=== PATIENT | female | born 1955 | race Hispanic/Latino ===

== ENCOUNTER 2017-11-04 06:12 | Day surgery (SDC) | payer BC ==
[2017-10-29 13:45] VITALS: BMI 21.1
--- NOTE | 2017-11-03 23:04 | HP ---
REASON FOR ADMISSION: Left heart cath, possible angioplasty, because of abnormal stress test. BRIEF CLINICAL HISTORY: This is a 61-year-old female with past medical history significant for coronary artery disease status post stent by Dr. Davila in the past who is complaining of chest pain, discomfort, and dyspnea on exertion. Was seen by Dr. Funez on 10/19/2017 because of multiple risk factors of coronary artery disease including history of stent in the past. The patient underwent a stress test that is abnormal. The patient is scheduled for elective cardiac cath, possible angioplasty. PAST MEDICAL HISTORY: Significant for coronary artery disease, status post stent a few years ago, and history of hypertension more than 10 years ago. SOCIAL HISTORY: He smokes half a pack a day. Before, he used to smoke a pack a day. Drinks socially. ALLERGIES: NO KNOWN DRUG ALLERGIES. CURRENT MEDICATIONS: The patient is taking tramadol 50 mg daily, valsartan 160 mg daily, nortriptyline 10 mg daily, labetalol 100 mg p.o. b.i.d., Nexium 40 mg daily, aspirin 81 mg daily, and Xanax 1 mg daily. CARDIAC WORKUP: As follows: The patient underwent a stress test dated 10/25/2017 that showed probably normal myocardial perfusion study, partially reversible anteroseptal defect suspicious for residual ischemia, and ejection fraction reported 70%. In comparison to last study on 04/22/2015, the defect appears new. EKG showed normal sinus artifact pattern in V1 suggestive of incomplete right bundle-branch block and 1 to 2 mm horizontal slopping noted in V4, V5 and V6 suggestive of ischemia versus LVH with a strange pattern. PHYSICAL EXAMINATION: VITAL SIGNS: Height of the patient is 5 feet 1 inch. Weight of the patient is 112 pounds. Body mass index is 21.2 kg/m2. Heart rate 60 and blood pressure 120/80. HEENT: PERRLA intact. NECK: Supple. No carotid bruit or thyromegaly. CHEST: Clear to auscultation. HEART: S1 and S2 regular. ABDOMEN: Soft. EXTREMITIES: Clubbing and cyanosis negative. LABORATORY DATA: Blood workup pending. IMPRESSION: Abnormal EKG ST-T wave changes suggestive of ischemia, abnormal stress test suggestive of reversible anteroseptal defect suggestive of ischemia, ejection fraction 70%, possible myocardial infarction, history of stent in the past. RECOMMENDATION: We will do cardiac cath and load with 300 mg of Plavix and aspirin. Further recommendation after the cardiac cath. We will follow with you. Thank you Dr. Darryn Cedeno/ for providing us the opportunity in taking care of the patient, Carmina Palacios. Ata Singh MD
[2017-11-04] MEDS ORDERED: Phenylephrine 10 mg/ml Inj ONE (06:59)
[2017-11-04] MEDS ORDERED: Iodixanol 320 MG/ML 200 ML BOTTLE IV ONE (07:01)
[2017-11-04] MEDS ORDERED: Iohexol 350mgl/ml 50 ML ONE (07:01)
[2017-11-04] MEDS ORDERED: Iodixanol 320 MG/ML 100 ML BOTTLE IV ONE (07:01)
[2017-11-04] MEDS ORDERED: HEPARIN SODIUM/NS 1,000 ML IV ONE (07:01)
[2017-11-04] MEDS ORDERED: Nitroglycerin 50mg in D5W 50 MG/250 ML BOTTLE IV ONE (07:02)
[2017-11-04] MEDS ORDERED: Lidocaine 2% Inj (20ml) ONE (07:02)
[2017-11-04 07:34] LABS: BASO # 0.04 K/mm3 (0.0-2.0); BASO % 0.7 % (0.0-3.0); EOS # 0.1 (0.0-0.7); EOS % 2.1 % (1.5-5.0); GRAN # 3.54 (1.4-6.5); HEMATOCRIT 32.5 % (36.0-48.0); LYMPH # 1.8 (1.2-3.4); LYMPH % 30.3 % (22.0-35.0); MEAN CELL VOLUME 86.7 fl (80.0-105.0); MEAN CORPUSCULAR HEMOGLOBIN 29.1 pg (25.0-35.0); MEAN CORPUSCULAR HGB CONC 33.5 g/dl (31.0-37.0); MEAN PLATELET VOLUME 10.5 fl (7.0-11.0); MONO # 0.3 (0.1-0.6); MONO % 5.9 % (1.0-6.0); WHITE BLOOD COUNT 5.8 10^3/ul (4.5-11.0)
[2017-11-04 07:43] LABS: CALCIUM 9.6 mg/dL (8.4-10.5); POTASSIUM 4.4 mmol/L (3.6-5.0)
[2017-11-04] MEDS: Midazolam 2 MG/2 ML VIAL ONE ×2 (07:44→09:26)
[2017-11-04 07:47] LABS: INR 0.96 (0.93-1.08); PARTIAL THROMBOPLASTIN TIME 29.7 Seconds (25.1-36.5)
[2017-11-04] MEDS ORDERED: Sodium Bicarbonate (8.4%) 50 Meq Syringe ONE (07:53)
[2017-11-04] MEDS ORDERED: Sodium Bicarbonate 8.4% 130 MEQ in Sodium Chloride 0.45% 1,000 ML IV SCH (08:00)
[2017-11-04] MEDS: Morphine 2 mg/ml ISec ONE ×2 (08:32→09:24)
[2017-11-04] MEDS ORDERED: Oxycodone/Acetaminophen 5/325 mg Tab PO PRN (09:14)
[2017-11-04] MEDS ORDERED: Morphine 2 mg/ml ISec IVP PRN (09:32)
[2017-11-04 13:53] LABS: BASO # 0.03 K/mm3 (0.0-2.0); BASO % 0.5 % (0.0-3.0); EOS # 0.1 (0.0-0.7); EOS % 0.9 % (1.5-5.0); GRAN # 4.32 (1.4-6.5); GRAN % 78.6 % (50.0-68.0); HEMATOCRIT 31.3 % (36.0-48.0); LYMPH # 0.8 (1.2-3.4); LYMPH % 14.5 % (22.0-35.0); MEAN CORPUSCULAR HEMOGLOBIN 29.1 pg (25.0-35.0); MEAN CORPUSCULAR HGB CONC 33.9 g/dl (31.0-37.0); MEAN PLATELET VOLUME 10.1 fl (7.0-11.0); MONO # 0.3 (0.1-0.6); MONO % 5.5 % (1.0-6.0); WHITE BLOOD COUNT 5.5 10^3/ul (4.5-11.0)
[2017-11-04 14:22] LABS: CALCIUM 8.6 mg/dL (8.4-10.5); MAGNESIUM 1.9 mg/dL (1.7-2.2); PHOSPHOROUS 3.8 mg/dL (2.5-4.5)
[2017-11-04 14:53] LABS: POTASSIUM 3.9 mmol/L (3.6-5.0)
[2017-11-04] MEDS ORDERED: Sodium Chloride 0.9% 1,000 ML IV SCH (15:00)
--- NOTE | 2017-11-04 17:48 | CARD ---
APPROVED REPORT Procedure(s) performed: Left Heart Catheterization Asceding Aortogram Non Selective Renal ( distal Abd aortogram) HISTORY The patient is a 61 year-old female with a history of : previous ID (> 7 days), most recent EF: 70%. (EF Method: RADIONUCLIDE), previous diagnostic cath, tobacco history() : The patient is a current smoker , previous PCI (The PCI date was 08/04/2015), hypertension , dyslipidemia , Pre-op abnormal stress test, Clayton-septal reversible Ischemia., CKD base line Creatinine 2.1 and uncontrolled HTN.. INDICATION The indication(s) include : positive stress test. CASE TECHNIQUE The patient was brought electively to the Cardiac Catheterization Laboratory in a fasting state and was prepped and draped in a sterile manner. The right femoral groin was infiltrated with 2% Lidocaine subcutaneous anesthesia. A 6 Fr x 11 cm Cierra sheath was inserted into the right femoral artery without difficulty. Coronary angiography was performed using coronary diagnostic catheters. The left coronary system was accessed and visualized with a Diagnostic ,6 Fr JR 4 catheter. The right coronary system was accessed and visualized with a Diagnostic ,6 Fr JR 3.5 catheter. The left ventricle was accessed and visualized with a 6 Fr Pigtail catheter. Left ventricular/Aortic Valve gradient assessed on pullback. Left ventriculogram was performed in JARVIS projection. Closure device was deployed with a 6 Fr / 7 Fr MynxGrip without any complications. The patient tolerated the procedure well and there were no complications associated with the procedure. Vessel Analysis The patient's coronary anatomy is right dominant. The left main coronary artery is a medium size vessel with diffuse calcification noted throughout this vessel and without significant stenosis. The left main bifurcates to the left anterior descending and circumflex. The left anterior descending artery is a medium size vessel with diffuse calcification noted throughout this vessel and without significant stenosis. patent stent noted in Mid LAD The first diagonal branch is a medium size vessel with diffuse calcification noted throughout this vessel and without significant stenosis. The second diagonal branch is a small size vessel with diffuse calcification noted throughout this vessel and without significant stenosis. The circumflex artery is a medium size vessel with diffuse calcification noted throughout this vessel and without significant stenosis. There is a 60-70% stenosis in the proximal segment. very torous Vessel with Hair pin turn Distal to stenosis. The first obtuse marginal branch is a medium size vessel with diffuse calcification noted throughout this vessel and without significant stenosis. The second obtuse marginal branch is a medium size vessel with diffuse calcification noted throughout this vessel and without significant stenosis. The right coronary artery is a large size vessel with diffuse calcification noted throughout this vessel and without significant stenosis. The right posterior descending artery is a medium size vessel with diffuse calcification noted throughout this vessel and without significant stenosis. The right posterolateral branch is a medium size vessel with diffuse calcification noted throughout this vessel and without significant stenosis. Left Ventricle The left ventricle is Normal in size with Hyperdynamic contractility. There was no cardiomyopathy. The left ventricular ejection fraction is estimated to be 65-70%. The left ventricular end diastolic pressure is 20 mmHg. Asceding aorotgram done ........No descetion noted Renal Angiogram A JR3.5 catheter was placed in the descending abdominal aorta above the origin of the renal arteries. Angiogram was performed. Left renal artery has 60-70% stenosis in Mid segment Conclusion Non Obstructive CAD, Patent stent in Mid LAD. Moderate Diz. in proximal Cx with 60-70% stenosis and Hair pin turn distal to stenisis not very much suitable for PCI. Preserved LV FX; Ef-65-70%, EDP20 mmof hg. post Cath pt developed Bp- 260/140,so non selective b/l Renal angiogram done... 60-70% left renal aretry stenosis Post procedure lt developed chest pain with radiation to back , so Asc Aortogram done..... No aortic Dissection noted Toal 25 cc diluted Contrast (visipaque ) used. Recommendations Aggressive Medical TherapyCardiac Risk Reduction Program Monitor renal Fx, hydaration with Bicarb fluid Repeat SMA-7 ,6 hrs post Cath (creatinine 1.8, Base line 2.1). F/U Sma-7 in one week Pt. is cleared to go for surgery for back pain. If Bp remains uncontrolled ,may consider Renal artery Duplex study or Renal artery MRA. Cc; drs. Miguel Angel Sweeney / [place].
[2017-11-04] MEDS ORDERED: Sodium Chloride 0.45% 1,000 ML IV SCH (23:15)
[2017-11-04 23:42] VITALS: RESP 18
[2017-11-05 05:59] VITALS: PULSE 74; TEMP 98.9; O2SAT 96
[2017-11-05 06:34] LABS: BASO # 0.03 K/mm3 (0.0-2.0); BASO % 0.5 % (0.0-3.0); EOS # 0.1 (0.0-0.7); GRAN # 4.4 (1.4-6.5); GRAN % 73.1 % (50.0-68.0); HEMATOCRIT 29.9 % (36.0-48.0); LYMPH # 1.2 (1.2-3.4); LYMPH % 19.1 % (22.0-35.0); MEAN CELL VOLUME 86.9 fl (80.0-105.0); MEAN CORPUSCULAR HEMOGLOBIN 28.2 pg (25.0-35.0); MEAN CORPUSCULAR HGB CONC 32.4 g/dl (31.0-37.0); MEAN PLATELET VOLUME 10.6 fl (7.0-11.0); MONO # 0.4 (0.1-0.6); MONO % 6.3 % (1.0-6.0); RED CELL DISTRIBUTION WIDTH 14.7 % (11.5-14.5)
[2017-11-05 06:59] LABS: BILIRUBIN,TOTAL 0.5 mg/dL (0.2-1.3); CALCIUM 8.6 mg/dL (8.4-10.5); MAGNESIUM 1.8 mg/dL (1.7-2.2); PHOSPHOROUS 3.6 mg/dL (2.5-4.5); TOTAL PROTEIN 7.4 g/dL (5.8-8.3)
[2017-11-05 09:29] VITALS: BP 124/68
[2017-11-05] MEDS ORDERED: Non Formulary Medication (Valsartan [Diovan] 160 MG) PO SCH (10:00)
--- NOTE | 2017-11-06 03:40 | DS ---
REASON FOR ADMISSION: Left heart cath, possible angioplasty, because of abnormal stress test, preop for back surgery/stimulatory implantation. HISTORY OF PRESENT ILLNESS: The patient denies any chest pain, shortness of breath, or any palpitation. PHYSICAL EXAMINATION: VITAL SIGNS: As follows, temperature afebrile, heart rate 74, blood pressure 113/62. HEENT: PERRLA. Extraocular muscles intact. NECK: Supple. No carotid bruit or thyromegaly. CHEST: Clear to auscultation. HEART: S1 and S2 regular. ABDOMEN: Soft. EXTREMITIES: Clubbing and cyanosis negative. LABORATORY DATA: Blood workup as follows: WBC 6, hemoglobin 9.9, hematocrit 29.9 and platelet count 162. Chemistries shows sodium 130, potassium 4, chloride 107, carbon dioxide 27, anion gap of 9, BUN 20, creatinine 1.9. IMPRESSION: Coronary artery disease, status post cardiac catheterization because of abnormal stress test that shows ejection fraction preserved, circumflexes disease, patent stent in left anterior descending, preserved left ventricular function. The patient is baseline creatinine elevated 2.1. The patient was given by IV fluid. Postprocedure, his creatinine came to 1.8, but the patient remained hypertensive, kept overnight under observation. Now the blood pressure well controlled now. The patient denies any chest pain, shortness of breath, or any palpitation. Blood pressure now the 113/62. PLAN: To discharge home followed with Dr. Funez. Follow up with Dr. Darryn Cedeno, also I mentioned to doctor again, if the patient needs follow up one week to monitor the renal function. Also, if the blood pressure remains elevated, consider arterial duplex study of renal artery as well as MRI can be considered, but the patient is cleared from Cardiology point of view to go for implantation of nerve stimulator or back surgery. Total 20 mL of contrast was used. The diluted contrast received back and postprocedure kidney function remained stable. MEDICATIONS AT THE DISCHARGE: Include previous pain medication labetalol 100 mg three times a day, losartan 100 mg daily, aspirin 81 mg daily. Thank you Dr. Funez for providing us the opportunity in taking care of the patient, Carmina Palacios. We will follow with you. Ata Singh MD [facility] # [id number]
== END 2017-11-05 10:26 | disposition home or self-care (01) ==
LOC: CATH 06:12 → 2RSO 09:08 → CATH 11-05 10:26
PROVIDERS: ATTEND Internal Medicine Cardiovascular Disease
DX: I25.10 Atherosclerotic heart disease of native coronary artery without angina pectoris (principal); I70.1 Atherosclerosis of renal artery; I12.9 Hypertensive chronic kidney disease with stage 1 through stage 4 chronic kidney disease, or unspecified chronic kidney disease; N18.9 Chronic kidney disease, unspecified; F17.210 Nicotine dependence, cigarettes, uncomplicated; E78.5 Hyperlipidemia, unspecified; Z95.5 Presence of coronary angioplasty implant and graft
CPT/HCPCS: 36415; 80048; 80061; 83735; 84100; 85025; 85610; 85730; 86850; 86900; 93458; 99152; 99153; C1760; C1769; C2629; J0360; J1644 ×2; J2250; J2270; J2405; J3010; J7030 ×2; J7040 ×2

== ENCOUNTER 2018-02-03 11:51 | Inpatient (IN) | payer BC ==
[2018-02-03] MEDS ORDERED: Metoprolol 1 mg/ml Inj IVP STA ×3 (12:13→12:33)
--- NOTE | 2018-02-03 12:18 | ED PDOC ---
Arrival/HPI - General Chief Complaint: High Blood Pressure Time Seen by Provider: 02/03/18 12:12 Historian: Patient - History of Present Illness Narrative History of Present Illness (Text): 02/03/18 12:12 A 62 year old female, whose past medical history includes hypertension, CAD with 4 stents, carotid artery stenosis, and chronic back pain, presents to the emergency department complaining of near syncope this morning. Patient reports feeling like she was going to pass out while in the shower so she stepped out and went to lay in bed. Patient notes a mild headache and high blood pressure. Patient denies any fever, chills, nausea, vomiting, abdominal pain, chest pain, shortness of breath, new back pain, or any other complaints. PMD: Dr. Cedeno 02/03/18 14:57 Time/Duration: Other (this morning) Symptom Course: Unchanged Context: Home Past Medical History - Provider Review Nursing Documentation Reviewed: Yes - Infectious Disease Hx of Infectious Diseases: None - Cardiac Hx Cardiac Disorders: Yes Hx Hypertension: Yes - Pulmonary Hx Respiratory Disorders: No - Neurological Hx Neurological Disorder: No - HEENT Hx HEENT Disorder: No - Renal Hx Renal Disorder: No - Endocrine/Metabolic Hx Endocrine Disorders: No - Hematological/Oncological Hx Blood Disorders: Yes Hx Cancer: Yes (SMOLDERING MYELOMA) - Integumentary Hx Dermatological Disorder: No - Musculoskeletal/Rheumatological Hx Musculoskeletal Disorders: Yes Hx Back Pain: Yes - Gastrointestinal Hx Gastrointestinal Disorders: No - Genitourinary/Gynecological Hx Genitourinary Disorders: No - Psychiatric Hx Psychophysiologic Disorder: No Hx Substance Use: No - Surgical History Hx Coronary Stent: Yes - Anesthesia Hx Anesthesia Reactions: No Hx Malignant Hyperthermia: No - Suicidal Assessment Feels Threatened In Home Enviroment: No Family/Social History - Physician Review Nursing Documentation Reviewed: Yes Family/Social History: No Known Family HX Smoking Status: Current Some Days Smoker Hx Alcohol Use: No Hx Substance Use: No Allergies/Home Meds Allergies/Adverse Reactions: Allergies erythromycin base Allergy (Severe, Verified 02/03/18 11:53) RASH Penicillins Allergy (Severe, Verified 02/03/18 11:53) RASH Home Medications: Home Meds Medication Instructions Recorded Confirmed Aspirin [Aspir 81] 81 mg PO DAILY 11/03/13 02/03/18 Alprazolam [Xanax] 1 mg PO TID 04/22/15 02/03/18 Esomeprazole Magnesium [Nexium] 40 mg PO DAILY 10/25/17 02/03/18 Labetalol [Trandate] 100 mg PO BID 10/25/17 02/03/18 Valsartan [Diovan] 160 mg PO DAILY 10/25/17 02/03/18 traMADol [Ultram] 50 mg PO DAILY PRN 10/25/17 02/03/18 Review of Systems - Physician Review All systems were reviewed & negative as marked: Yes - Review of Systems Constitutional: absent: Fevers, Night Sweats Eyes: absent: Vision Changes Respiratory: absent: SOB Cardiovascular: Other (near-syncope). absent: Chest Pain, Palpitations, Edema, Calf Pain, ROCHE, Orthopnea, Syncope Gastrointestinal: absent: Abdominal Pain, Nausea, Vomiting Genitourinary Female: absent: Dysuria, Frequency Musculoskeletal: Back Pain (chronic, no new) Neurological: Headache, Dizziness. absent: Focal Weakness, Gait Changes, Speech Changes, Facial Droop Physical Exam Vital Signs Reviewed: Yes Vital Signs Temp Pulse Resp BP Pulse Ox 02/03/18 15:36 98.3 F 02/03/18 15:34 62 190/90 H 99 02/03/18 14:56 66 16 180/80 H 98 02/03/18 14:47 63 18 190/90 H 99 02/03/18 14:41 66 18 210/110 H 98 02/03/18 14:32 64 210/120 H 02/03/18 14:18 64 18 220/120 H 98 02/03/18 14:00 61 18 200/98 H 99 02/03/18 13:47 64 18 200/98 H 99 02/03/18 13:41 62 220/100 H 02/03/18 13:35 62 18 220/100 H 99 02/03/18 12:59 64 18 220/90 H 100 02/03/18 12:37 220/100 H 02/03/18 12:34 72 18 220/100 H 98 02/03/18 11:55 97.7 F 67 17 232/74 H 100 Temperature: Afebrile Blood Pressure: Hypertensive Pulse: Regular Respiratory Rate: Normal Appearance: Positive for: Well-Appearing, Non-Toxic, Comfortable Pain Distress: None Mental Status: Positive for: Alert and Oriented X 3 - Systems Exam Head: Present: Atraumatic, Normocephalic Pupils: Present: PERRL Extroacular Muscles: Present: EOMI Conjunctiva: Present: Normal Mouth: Present: Moist Mucous Membranes Neck: Present: Normal Range of Motion. No: Meningeal Signs Respiratory/Chest: Present: Clear to Auscultation, Good Air Exchange. No: Respiratory Distress, Accessory Muscle Use Cardiovascular: Present: Regular Rate and Rhythm, Normal S1, S2. No: Murmurs Abdomen: Present: Normal Bowel Sounds. No: Tenderness, Distention, Peritoneal Signs Back: Present: Normal Inspection Upper Extremity: Present: Normal Inspection, Normal ROM, NORMAL PULSES (Equal pulses bilaterally). No: Cyanosis, Edema Lower Extremity: Present: Normal Inspection. No: Edema, CALF TENDERNESS Neurological: Present: GCS=15, CN II-XII Intact, Speech Normal, Motor Func Grossly Intact, Normal Sensory Function, Normal Cerebellar Funct Skin: Present: Warm, Dry, Pale. No: Rashes Psychiatric: Present: Alert, Oriented x 3, Normal Insight, Normal Concentration Medical Decision Making ED Course and Treatment: 02/03/18 12:12 Impression: A 62 year old female with near syncope. Patient notes mild headache, high blood pressure and chronic back pain. Plan: -- Chest xray -- EKG -- Labs -- Aspirin and Metropolol -- Reassess and disposition Progress Notes: 02/03/18 12:25 Chart review shows that in 10/2017 patient had angio that showed non- obstructive CAD, and 60-70% L artery renal stenosis with renal artery duplex or renal artery MRA recommended if peristent episodes of hypertension 02/03/18 12:26 EKG shows NSR at 67bpm with left atrial enlargement, RSR" pattern, LVH, unchanged from prior on 10/06/17. 02/03/18 13:02 Cxray negative. Bun doubled from baseline. BP uncontrolled with IV medication and essentially unchanged after labetalol and lopressor push dose. Cardene started for better BP control with goal systolic 180 and decreasing MAP but no more than 25%. Will need tele for hypertensive urgency. Will titrate off cardene as better control with po meds. Report Date : 02/03/2018 13:11:19 Procedure: Chest xray Dictator : Reid Lawton MD IMPRESSION: No active disease. - Lab Interpretations Lab Results: 02/03/18 12:20 02/03/18 12:20 Lab Results 02/03/18 12:20: Sodium 143, Potassium 3.9, Chloride 108 H, Carbon Dioxide 24, Anion Gap 15, BUN 40 H, Creatinine 2.5 H, Est GFR ( Amer) 23, Est GFR ( Non-Af Amer) 19, Random Glucose 123 H, Calcium 9.7, Total Bilirubin 0.6, AST 25 , ALT 16, Alkaline Phosphatase 79, Total Creatine Kinase 81, Troponin I 0.02 D , Total Protein 9.0 H, Albumin 4.3, Globulin 4.6, Albumin/Globulin Ratio 0.9 L 02/03/18 12:20: PT 11.6, INR 1.01, APTT 30.6 02/03/18 12:20: WBC 6.2, RBC 3.40 L, Hgb 9.8 L, Hct 29.0 L, MCV 85.3, MCH 28.8, MCHC 33.8, RDW 13.9, Plt Count 166, MPV 10.2, Gran % 71.3 H, Lymph % (Auto) 19.7 L, Mccormick % (Auto) 6.5 H, Eos % (Auto) 2.0, Baso % (Auto) 0.5, Gran # 4.39, Lymph # (Auto) 1.2, Mccormick # (Auto) 0.4, Eos # (Auto) 0.1, Baso # (Auto) 0.03 I have reviewed the lab results: Yes - RAD Interpretation Radiology Orders: 02/03/18 12:12 CHEST PORTABLE [RAD] Stat - Medication Orders Current Medication Orders: Alprazolam (Xanax) 1 mg PO TID PRN; Protocol PRN Reason: Anxiety Aspirin (Aspirin Chewable) 81 mg PO DAILY MIRTA Hydralazine HCl (Apresoline) 50 mg PO BID MIRTA Nicardipine HCl (Cardene Iv Premix) 20 mg in 200 mls @ 50 mls/hr IV .Q4H MIRTA PRN Reason: 5 MG/HR Last Admin: 02/03/18 14:32 Dose: 50 mls/hr eMAR Start Stop Document 02/03/18 14:32 SZA (Rec: 02/03/18 14:33 [id number]) Intravenous Solution Start Date 02/03/18 Start Time 14:32 End Date 02/03/18 End time 14:56 Total Infusion Time 24 MAR Pulse and Blood Pressure Document 02/03/18 14:32 SZA (Rec: 02/03/18 14:33 [id number]) Pulse Pulse Rate (60-90) 64 Blood Pressure Blood Pressure (100/60-150/90) 210/120 Labetalol HCl (Trandate) 100 mg PO BID MIRTA Tramadol HCl (Ultram) 50 mg PO Q8H PRN PRN Reason: Pain, moderate (4-7) Discontinued Medications Aspirin (Aspirin Chewable) 324 mg PO STAT STA Stop: 02/03/18 12:15 Last Admin: 02/03/18 12:25 Dose: 324 mg Labetalol HCl (Trandate) 20 mg IV STAT STA Stop: 02/03/18 13:36 Last Admin: 02/03/18 13:41 Dose: 20 mg eMAR Start Stop Document 02/03/18 13:41 [email or web address] Angel (Rec: 02/03/18 13:42 [id number]) Intravenous Solution Start Date 02/03/18 Start Time 13:41 End Date 02/03/18 End time 13:46 Total Infusion Time 5 MAR Pulse and Blood Pressure Document 02/03/18 13:41 SZA (Rec: 02/03/18 13:42 [id number]) Pulse Pulse Rate (60-90) 62 Blood Pressure Blood Pressure (100/60-150/90) 220/100 Metoprolol Tartrate (Lopressor) 10 mg IVP STAT STA Stop: 02/03/18 12:34 Last Admin: 02/03/18 12:37 Dose: 10 mg IVP Administration Document 02/03/18 12:37 SZA (Rec: 02/03/18 12:37 SZA [id number]) Charges for Administration # of IVP Administrations 1 MAR Pulse and Blood Pressure Document 02/03/18 12:37 SZA (Rec: 02/03/18 12:37 [id number] [id number]) Blood Pressure Blood Pressure (100/60-150/90) 220/100 - Scribe Statement The provider has reviewed the documentation as recorded by the Scribe Abbie Todd Provider Scribe Attestation: All medical record entries made by the Scribe were at my direction and personally dictated by me. I have reviewed the chart and agree that the record accurately reflects my personal performance of the history, physical exam, medical decision making, and the department course for this patient. I have also personally directed, reviewed, and agree with the discharge instructions and disposition. Disposition/Present on Arrival - Present on Arrival Any Indicators Present on Arrival: No History of DVT/PE: No History of Uncontrolled Diabetes: No Urinary Catheter: No History of Decub. Ulcer: No History Surgical Site Infection Following: None - Disposition Have Diagnosis and Disposition been Completed?: Yes Diagnosis: Hypertensive urgency, Dizziness, Elevated BUN Disposition: HOSPITALIZED Disposition Time: 13:03 Patient Plan: Admission Patient Problems: Current Active Problems Problem Status Onset Hypertensive urgency Acute Dizziness Acute Elevated BUN Acute Condition: FAIR
[2018-02-03 12:33] LABS: BASO # 0.03 K/mm3 (0.0-2.0); BASO % 0.5 % (0.0-3.0); EOS # 0.1 (0.0-0.7); GRAN # 4.39 (1.4-6.5); GRAN % 71.3 % (50.0-68.0); HEMOGLOBIN 9.8 g/dL (12.0-16.0); LYMPH # 1.2 (1.2-3.4); LYMPH % 19.7 % (22.0-35.0); MEAN CELL VOLUME 85.3 fl (80.0-105.0); MEAN CORPUSCULAR HEMOGLOBIN 28.8 pg (25.0-35.0); MEAN CORPUSCULAR HGB CONC 33.8 g/dl (31.0-37.0); MEAN PLATELET VOLUME 10.2 fl (7.0-11.0); MONO # 0.4 (0.1-0.6); MONO % 6.5 % (1.0-6.0); RBC 3.4 10^6/uL (3.5-6.1); RED CELL DISTRIBUTION WIDTH 13.9 % (11.5-14.5); WHITE BLOOD COUNT 6.2 10^3/ul (4.5-11.0)
[2018-02-03 12:40] LABS: ALB/GLOB RATIO 0.9 (1.1-1.8); ALBUMIN 4.3 g/dL (3.0-4.8); CALCIUM 9.7 mg/dL (8.4-10.5)
[2018-02-03 12:44] LABS: INR 1.01 (0.93-1.08); PARTIAL THROMBOPLASTIN TIME 30.6 Seconds (25.1-36.5); PROTHROMBIN TIME 11.6 SECONDS (9.4-12.5)
[2018-02-03 12:51] LABS: TROPONIN I 0.02 ng/mL
--- NOTE | 2018-02-03 13:12 | RAD ---
HISTORY: hypertension COMPARISON: 10/06/2017 FINDINGS: LUNGS: No active pulmonary disease. PLEURA: No significant pleural effusion identified, no pneumothorax apparent. CARDIOVASCULAR: Normal heart size. Coronary arterial stent noted. No congestive change. OSSEOUS STRUCTURES: No significant abnormalities. VISUALIZED UPPER ABDOMEN: Normal. OTHER FINDINGS: None. IMPRESSION: No active disease.
[2018-02-03] MEDS ORDERED: Labetalol 5 mg/ml Inj 20ML IV STA (13:35)
[2018-02-03] MEDS ORDERED: Labetalol 5 mg/ml Inj 20ML ONE (13:39)
[2018-02-03] MEDS: Nicardipine 20 MG/200 ML 20 MG/200 ML BAG IV SCH (14:32)
[2018-02-03 19:32] VITALS: BMI 19.1
[2018-02-03] MEDS ORDERED: Influenza Vaccine 60 mcg/0.5 mL SYR (4YR UP) IM ONE (19:32)
[2018-02-03] MEDS ORDERED: Pneumococcal 23-Valent Vaccine IM ONE (19:32)
--- NOTE | 2018-02-03 21:22 | HP ---
HISTORY OF PRESENT ILLNESS: The patient is a 62 year old woman with a past medical history of CAD s/p PCI with stent placement and hypertension who presented to [facility] ED with a 1 day history of near syncope and posterior headaches. The patient states that earlier in the day when she was showering she felt as if she was going to pass out and went to lay down for her symptoms to resolve. She subsequently developed a headache to the back of her head that was unrelenting. She attempted to check her blood pressure on her machine at home but was unable to get a reading and thus presented to the ED for further evaluation. On arrival to the ED she was found to be markedly hypertensive with a blood pressure of 232/74. She received Labetalol 20 mg IV push and Metoprolol 10 mg IV push with no improvement in her hemodynamics. She was subsequently started on a nicardipine drip and transferred to the telemetry lopez for continued management of hypertensive urgency. PAST MEDICAL HISTORY: As per HPI, also PVD, hyperlipidemia, COPD, anxiety disorder, carotid artery stenosis and sciatica. PAST SURGICAL HISTORY: As per HPI. ALLERGIES: PCN and macrolides. MEDICATIONS: Tramadol 50 mg p.o. q.8 hours p.r.n. pain, Labetalol 100 mg p.o. b.i.d., Nexium 40 mg p.o. daily, Aspirin 81 mg p.o. daily, Xanax 1 mg p.o. t.i.d., Valsartan 160 mg p.o. daily. FAMILY HISTORY: Significant for CAD and hypertension. SOCIAL HISTORY: The patient reports an active 35 pack-year smoking history and social alcohol use. She denies illicit drug abuse. REVIEW OF SYSTEMS: A 14-point review of systems is negative except as per HPI. PHYSICAL EXAMINATION: VITAL SIGNS: Temperature 98, pulse 64, blood pressure 220/120, respiratory rate 18, oxygen saturation 98% on room air. GENERAL: Mild distress secondary to posterior headache. HEENT: PERRL, EOMI. No scleral icterus. No conjunctival pallor. NECK: No JVD. LUNGS: Clear to auscultation. CARDIOVASCULAR: Regular rate and rhythm. Normal S1 and S2. ABDOMEN: Normoactive bowel sounds. Soft, nontender and nondistended. EXTREMITIES: No edema. NEUROLOGIC: Awake, alert and oriented x3. No focal motor deficits. LABORATORY DATA: WBC 6, hemoglobin 9.8, hematocrit 29, platelets 166. Sodium 143, potassium 3.9, chloride 108, bicarbonate 24, BUN 40, creatinine 2.5 , glucose 123. Troponin less than 0.02. ASSESSMENT: The patient is a 62 year old woman with a past medical history of CAD s/p PCI with stent placement, HTN, PVD, COPD and hyperlipidemia who presented with a 1 day history of near syncope and posterior headaches and was admitted to the telemetry lopez for management of hypertensive urgency. PLAN: 1. Hypertensive urgency. The patient has been started on nicardipine drip. We will need to closely monitor hemodynamics and neuro checks q.[address] Singh of Cardiology was consulted for further evaluation and recommendations. We will start hydralazine 50 mg p.o. b.i.d. and resume labetalol 100 mg p.o. b.i.d. We will order a renal artery ultrasound to rule out renal artery stenosis. 2. CAD s/p PCI with stent placement. Resume aspirin 81 mg p.o. daily and labetalol 100 mg p.o. b.i.d. The patient is not on statin due to history of myopathy. 3. COPD. Continue supplemental oxygen and bronchodilators as needed. 4. PVD. Resume aspirin 81 mg p.o. daily. As above, the patient is not on statin due to history of myopathy. 5. Anxiety disorder. Resume Xanax 1 mg p.o. t.i.d. 6. Sciatica. We will resume tramadol 50 mg p.o. q.8 hours p.r.n. pain. 7. Prophylaxis. GI prophylaxis not indicated as the patient is eating. DVT prophylaxis is not indicated as the patient is ambulatory. CODE STATUS: Full code. Darryn Cedeno MD [email or web address]
[2018-02-04] MEDS: Nicardipine 20 MG/200 ML 20 MG/200 ML BAG IV SCH
[2018-02-04] MEDS ORDERED: Nitroglycerin 50mg in D5W 50 MG/250 ML BOTTLE IV PRN ×5 (00:44→06:45)
--- NOTE | 2018-02-04 01:53 | CP.PCM.PN ---
Subjective - Date & Time of Evaluation Date of Evaluation: 02/04/18 Time of Evaluation: 01:34 - Subjective Subjective: pt was admitted with hypertensive urgency today ,pt was started on cardene drip in er , pt bp inproved to 180/74 , the cardene drip was d/c and once the pt was on the floor the bp was again 210/84. pt has hx of uncontolled htn and is on diovan and labatalo at home pt states she has been taking those meds .pt was also given labatalol in er.pt is c/o back pain which she has hx for 1 yr. Objective - Vital Signs/Intake and Output Vital Signs (last 24 hours): Temp Pulse Resp BP Pulse Ox 98.3 F 69 16 210/90 H 99 02/03/18 19:08 02/03/18 23:45 02/03/18 19:08 02/03/18 23:45 02/03/18 16:47 - Medications Medications: Current Medications Alprazolam (Xanax) 1 mg PO TID PRN; Protocol PRN Reason: Anxiety Aspirin (Aspirin Chewable) 81 mg PO DAILY [facility] Hydralazine HCl (Apresoline) 50 mg PO BID [facility] Last Admin: 02/03/18 19:41 Dose: 50 mg Nitroglycerin/Dextrose (Nitroglycerin 50 Mg/250 Ml D5w) 50 mg in 250 mls @ 1.5 mls/hr IV .Q24H PRN; 5 MCG/MIN PRN Reason: Systolic Blood Pressure Last Admin: 02/04/18 01:06 Dose: 1.5 mls/hr Labetalol HCl (Trandate) 100 mg PO BID [facility] Last Admin: 02/03/18 19:41 Dose: 100 mg Tramadol HCl (Ultram) 50 mg PO Q8H PRN PRN Reason: Pain, moderate (4-7) - Labs Labs: PT 11.6 SECONDS (9.4-12.5) 02/03/18 12:20 INR 1.01 (0.93-1.08) 02/03/18 12:20 APTT 30.6 Seconds (25.1-36.5) 02/03/18 12:20 - Constitutional Appears: No Acute Distress - Head Exam Head Exam: NORMOCEPHALIC - Eye Exam Eye Exam: Normal appearance Pupil Exam: PERRL - ENT Exam ENT Exam: Mucous Membranes Moist - Neck Exam Neck Exam: Full ROM - Respiratory Exam Respiratory Exam: Clear to Ausculation Bilateral - Cardiovascular Exam Cardiovascular Exam: RRR, +S1, +S2 - Rectal Exam Rectal Exam: Deferred - Extremities Exam Extremities Exam: Full ROM - Neurological Exam Neurological Exam: Awake, Oriented x3 - Skin Skin Exam: Dry, Warm Assessment and Plan - Assessment and Plan (Free Text) Assessment: hypertensive urgency. hx of cad . hx of chronic back pain. Plan: pt was given hydralazine 10 mg x1 ., no improvement of bp. pis started on tridyl drip, to decrease the bp at least 25%.
[2018-02-04 06:52] LABS: BASO # 0.04 K/mm3 (0.0-2.0); BASO % 0.7 % (0.0-3.0); EOS # 0.1 (0.0-0.7); EOS % 2.5 % (1.5-5.0); GRAN # 3.29 (1.4-6.5); GRAN % 57.9 % (50.0-68.0); HEMOGLOBIN 9.6 g/dL (12.0-16.0); LYMPH # 1.8 (1.2-3.4); MEAN CELL VOLUME 85.4 fl (80.0-105.0); MEAN CORPUSCULAR HEMOGLOBIN 28.7 pg (25.0-35.0); MEAN CORPUSCULAR HGB CONC 33.6 g/dl (31.0-37.0); MEAN PLATELET VOLUME 10.1 fl (7.0-11.0); MONO # 0.4 (0.1-0.6); MONO % 6.9 % (1.0-6.0); RBC 3.35 10^6/uL (3.5-6.1); WHITE BLOOD COUNT 5.7 10^3/ul (4.5-11.0)
[2018-02-04 07:12] LABS: TROPONIN I 0.03 ng/mL
[2018-02-04 07:42] LABS: ALB/GLOB RATIO 0.9 (1.1-1.8); ALBUMIN 3.9 g/dL (3.0-4.8); CALCIUM 9.5 mg/dL (8.4-10.5)
--- NOTE | 2018-02-04 10:32 | CARD ---
APPROVED REPORT EKG Measurement Heart [id number] <Conclusion> Normal sinus rhythm Possible Left atrial enlargement RSR' or QR pattern in V1 suggests right ventricular conduction delay Left ventricular hypertrophy with repolarization abnormality No change
[2018-02-04] MEDS: Pantoprazole 40 mg EC Tab PO SCH (10:49)
--- NOTE | 2018-02-04 16:09 | PN ---
DATE: 02/04/2018 SUBJECTIVE: The patient is in room 375, bed 2. The patient is sitting up in bed, alert, having breakfast. She has no complaints at this time. There have been no acute events overnight. The patient was initially admitted yesterday for almost passing out as well as a severe headache. Her blood pressure was found to be 232/74 in the emergency room. The patient currently has no significant complaints and states she does in fact feel better. PHYSICAL EXAMINATION: VITAL SIGNS: Temperature of 97.9, pulse rate of 69, blood pressure of 182/92, respiratory rate of 20 with an O2 saturation of 97% on room air. HEENT: PERRLA. EOMI with no icterus. NECK: Supple with no adenopathy or bruits present. There is a full range of motion. HEART: Regular rate and rhythm. No murmurs, rubs, or gallops. ABDOMEN: Soft. It is nontender. Bowel sounds are normoactive. EXTREMITIES: Show no deformities or edema with a full range of motion. NEUROLOGIC: There are no focal motor deficits. LABORATORY DATA: CBC shows a hemoglobin of 9.6 with a hematocrit of 28.6, which is steady from yesterday. BUN 40, creatinine of 2.4. IMPRESSION: At this time, is uncontrolled hypertension and renal failure. PLAN: We will continue to monitor patient's blood pressure and treat accordingly. Romain Cedeno MD
[2018-02-05 07:33] LABS: BASO # 0.03 K/mm3 (0.0-2.0); BASO % 0.5 % (0.0-3.0); EOS # 0.2 (0.0-0.7); EOS % 2.7 % (1.5-5.0); GRAN # 3.61 (1.4-6.5); GRAN % 61.9 % (50.0-68.0); HEMOGLOBIN 9.3 g/dL (12.0-16.0); LYMPH # 1.6 (1.2-3.4); LYMPH % 26.9 % (22.0-35.0); MEAN CELL VOLUME 84.1 fl (80.0-105.0); MEAN CORPUSCULAR HEMOGLOBIN 28.4 pg (25.0-35.0); MEAN CORPUSCULAR HGB CONC 33.8 g/dl (31.0-37.0); MEAN PLATELET VOLUME 9.8 fl (7.0-11.0); MONO # 0.5 (0.1-0.6); RBC 3.27 10^6/uL (3.5-6.1); RED CELL DISTRIBUTION WIDTH 14.1 % (11.5-14.5); WHITE BLOOD COUNT 5.8 10^3/ul (4.5-11.0)
[2018-02-05 07:52] LABS: ALB/GLOB RATIO 0.9 (1.1-1.8); CALCIUM 9.6 mg/dL (8.4-10.5)
[2018-02-05] MEDS: Pantoprazole 40 mg EC Tab PO SCH (09:49)
--- NOTE | 2018-02-05 10:31 | PN ---
SUBJECTIVE: The patient was seen and examined at bedside on the remote telemetry lopez. Overnight she was noted to be persistently hypertensive with a systolic blood pressure in the 180-200s range. She was started on a Tridil drip. This morning she reports mild headache but otherwise offers no complaints. She has pending renal artery ultrasound to assess for renal artery stenosis. OBJECTIVE VITAL SIGNS: Temperature 98.8, pulse 79, blood pressure 170/73, respiratory rate 18, oxygen saturation 98% on room air. GENERAL: Mild distress secondary to headache. HEENT: PERRL. EOMI. No scleral icterus. No conjunctival pallor. NECK: No JVD. LUNGS: Clear to auscultation. CARDIOVASCULAR: Regular rate and rhythm. Normal S1 and S2. ABDOMEN: Normoactive bowel sounds. Soft, nontender, nondistended. EXTREMITIES: No edema. NEUROLOGIC: Awake, alert and oriented x3. No focal motor deficits. LABORATORY DATA: WBC 5.8, hemoglobin 9.3, hematocrit 27, platelets 183,000. Sodium 141, potassium 3.7, chloride 101, bicarbonate 24, BUN 40, creatinine 2.6 , glucose 93. ASSESSMENT: The patient is a 62 year old woman with a past medical history of CAD s/p PCI with stent placement, hypertension, PVD, COPD and hyperlipidemia who presented with a 1 day history of near-syncope and posterior headaches and was admitted to the remote telemetry lopez from management of hypertensive urgency. PLAN 1. Hypertensive urgency. The patient remains on a Tridil drip and with persistently elevated blood pressure. She has been started on multiple oral antihypertensives consisting of Amlodipine 10 mg p.o. daily, Hydralazine 50 mg p.o. b.i.d., Labetalol 100 mg p.o. b.i.d. and Clonidine 0.3 mg p.o. t.i.d. p.r.n. Renal artery ultrasound is pending. Input from Dr. Singh noted and appreciated. 2. BRANT vs progression of CKD, consider etiology secondary to continued use of Diovan in the setting of poor p.o. intake prior to admission vs deteriorating renal function in the setting of multiple myeloma. As above, renal artery ultrasound is pending. We will consult Dr. Banks of Nephrology for further evaluation and recommendations. 3. CAD s/p PCI with stent placement. Continue aspirin 81 mg p.o. daily and Labetalol 100 mg p.o. b.i.d. The patient declines statin due to the history of myopathy. 4. COPD. Continue supplemental oxygen and bronchodilators as needed. 5. PVD. Continue aspirin 81 mg p.o. daily. As above, the patient is not on statin due to history of myopathy. 6. Anxiety disorder. Continue Xanax 1 mg p.o. t.i.d. 7. Sciatica. Continue Tramadol 50 mg p.o. q. 8 hours p.r.n. pain. 8. Multiple myeloma. The patient has outpatient follow-up and is reportedly in remission. Will obtain her outpatient records for review. 9. Prophylaxis. GI prophylaxis not indicated as the patient is eating. DVT prophylaxis not indicated as the patient is ambulatory. CODE STATUS: Full code. Darryn Cedeno MD ABBY
[2018-02-05] MEDS: Sodium Chloride 0.9% 1,000 ML IV SCH (12:05)
[2018-02-05] MEDS ORDERED: Apap-Butalbital-Caffeine 325-50-40mg Tab PO PRN (12:11)
--- NOTE | 2018-02-05 20:32 | CON ---
DATE: 02/05/[address] Darryn Cedeno. REFERRING PHYSICIAN: Dr. Darryn Cedeno. REASON FOR CONSULTATION: Evaluation of a patient unknown to me who presents with worsening renal parameters in the setting of uncontrolled hypertension. HISTORY OF PRESENT ILLNESS: Patient is a pleasant 62-year-old white female, avid cigarette smoker for approximately 45 years, history of chronic kidney disease, stage III with a BUN of 20 and creatinine of 1.8 range. History of ASHD, status post PTCA stents. Patient followed by Dr. Davila. Patient states that she has had elevations of BUN and creatinine dating back to the contrast dye studies done for her cardiac catheterizations. History of hypertension of at least 5 to 10 years duration. History of COPD secondary to cigarette smoking, history of peripheral vascular disease, internal carotid artery stenosis and a stent in her right leg for peripheral vascular disease, history of low back pain with sciatica, history of anemia. History of smoldering myeloma followed by Hematology/Oncology out in the [facility]. Patient states that her blood pressure was extremely elevated and she had a near syncopal episode at home. She came to the emergency room, was noted to have a blood pressure of 220/120. She was admitted for evaluation. Her BUN and creatinine at the time of admission were 40 and 2.5. Again, her baseline is in the low 20 range with a creatinine of 1.8. We are asked to evaluate the patient for her uncontrolled hypertension and worsening renal parameters. Of note, a renal artery Doppler study was done this morning. These results are pending. PAST MEDICAL HISTORY: Significant for chronic kidney disease, stage III, likely hypertensive nephrosclerosis. History of ASHD, status post PTCA stent; history of hypertension, difficult to control; history of COPD secondary to cigarette smoking; history of peripheral vascular disease, internal carotid artery stenosis and right lower extremity peripheral vascular disease status post stent placement; history of low-back pain with sciatica; history of anemia; history of smoldering myeloma according to the patient. MEDICATIONS AT HOME: Include that of tramadol, Diovan, Trandate, Nexium, aspirin, and Xanax. ALLERGIES: PATIENT IS ALLERGIC TO PENICILLIN AND ERYTHROMYCIN. CURRENT MEDICATIONS IN THE HOSPITAL: Include that of Apresoline, aspirin, clonidine, nitroglycerin infusion, Norvasc, Protonix, Trandate, Tylenol p.r.n., Ultram p.r.n., and Xanax. SOCIAL HISTORY: Positive history of cigarette smoking of greater than 45 years duration, no history of alcohol use. No history of substance abuse. FAMILY HISTORY: History of coronary artery disease, history of hypertension. No history of chronic kidney disease. Patient is with two children. Patient is unemployed. REVIEW OF SYSTEMS: GENERAL: Patient states appetite and weight have been stable. ENT: Denies any hearing or visual problems. PULMONARY: No shortness of breath despite COPD. No history of recent pneumonias. CARDIAC: History of ASHD, but no chest pain or palpitations. GASTROINTESTINAL: No nausea, vomiting, diarrhea, constipation or abdominal pain. GENITOURINARY: History of chronic kidney disease. No history of UTIs. GYNECOLOGIC: Postmenopausal. ENDOCRINE: No history of diabetes. MUSCULOSKELETAL: Low back pain with intermittent sciatica. NEUROLOGIC: No past history of CVA, TIA, seizures or syncope. HEMATOLOGY AND ONCOLOGY: History of anemia perhaps secondary to chronic kidney disease and myeloma. PSYCHIATRIC: History is negative. PHYSICAL EXAMINATION: GENERAL: Patient is currently seen on 3R. She is on telemetry. She appears to be in no acute distress from elevated blood pressure readings. VITAL SIGNS: Blood pressure presently is 140/70. Pulse is 64, temperature is 98.8 with a respiratory rate of 18. HEENT: Shows her to be normocephalic, atraumatic. Conjunctivae are pale. Sclerae nonicteric. Pupils equal and reactive to light and accommodation. Extraocular muscles are intact. Posterior pharynx is normal. NECK: Supple. No neck vein distention, no thyromegaly. No lymphadenopathy. No audible bruits. CHEST: Clear to auscultation and percussion. No rales, rhonchi or wheezing. CARDIOVASCULAR: Shows a regular rate and rhythm with no notable murmurs, rubs or gallops. ABDOMEN: Soft. Bowel sounds are normal. No rebound, no guarding. No masses. No audible bruits. EXTREMITIES: Show no cyanosis, no clubbing or edema. Diminished lower extremity pulses bilaterally. BACK: No CVAT. No spinal tenderness. NEUROLOGIC: Shows her be alert, oriented x3 with no gross focal motor or sensory deficits noted. LABORATORY DATA AND IMAGING: Admitting chest x-ray, no acute pulmonary disease. Admitting EKG showed a normal sinus rhythm with LVH. Labs, CBC, white blood cell count 5.8, hemoglobin 9.3 with a platelet count of 183,000. Coags are normal. Chemistries show a BUN of 40 with a creatinine of 2.6. Electrolytes are normal. Calcium is 9.6. Bilirubin is 0.6. Liver enzymes are normal. Albumin is 4.0. Troponins are negative. TSH level is normal. Urines are pending. Renal artery Doppler study has been done, results are pending. ASSESSMENT: 1. Acute renal failure superimposed on chronic kidney disease, stage III in the setting of uncontrolled hypertension. The patient is being evaluated for possible renal artery stenosis in light of her history of internal carotid artery stenosis and peripheral vascular disease of her right lower extremity. Agree with discontinuation of angiotensin receptor maikel. Unfortunately, the patient's blood pressure is difficult to control. She is currently on Tridil. We need to maximize use of afterload reducing agent such as hydralazine, which had been started, nitroglycerin should be discontinued, once blood pressure is controlled better, patient may receive clonidine on an as-needed basis. Agree with high-dose Norvasc 10 mg a day. Agree with Trandate. If heart rate does not drop, that dose can be increased. Again, the patient should avoid IRVIN inhibitors and angiotensin receptor blockers in light of her worsening renal parameters. 2. Atherosclerotic heart disease. Status post percutaneous transluminal coronary angioplasty and stent. Patient states she has had elevated blood urea nitrogen and creatinines in the past secondary to dye studies. 3. History of near syncope secondary to elevated blood pressure readings at home. 4. History of chronic obstructive pulmonary disease secondary to a very long history of cigarette smoking. Patient states that she is unable to stop cigarettes. 5. History of peripheral vascular disease as noted above. 6. History of low back pain and sciatica, stable. 7. History of anemia, perhaps secondary to chronic kidney disease, perhaps secondary to smoldering myeloma. 8. History of smoldering myeloma according to patient. Patient states that she follows with Dr. Calderon out in [place] with the Hematology/Oncology group. Perhaps her CKD is secondary to her chronic kidney disease along with uncontrolled hypertension. PLAN: 1. Check results of renal artery Doppler study, renal ultrasound. If necessary, perhaps noncontrast MR study to further evaluate her kidney arteries. Patient would be a high risk for any kind of dye study or gadolinium. 2. Obtain urinalysis, urine microalbumin. 3. Obtain 24-hour urines for creatinine clearance and protein. 4. Obtain PTH level and vitamin D 25-hydroxy level. 5. Maximize hydralazine, maximize calcium channel maikel therapy. Try and maximize Trandate to improve her blood pressure control. Patient may receive clonidine on an as-needed basis. We will try to get her Tridil. 6. I discussed with the patient the need to monitor closely with Renal both during this present hospitalization and posthospitalization. She agrees. I did discuss with her the possibility of her kidney function worsening if her blood pressure does not remain controlled and the fact that we are limited in choice of blood pressure medications. 7. Renal diet, p.r.n. phosphorus binders. 8. Avoid all potentially nephrotoxic agents. Thank you for letting me partake and share in the care of your patient. Jean Paul Banks MD MTDD
--- NOTE | 2018-02-05 23:32 | US ---
PROCEDURE: Bilateral renal artery duplex ultrasound. CLINICAL HISTORY: Renal artery stenosis. Uncontrolled hypertension. Evaluate for renovascular hypertension. PHYSICIAN(S): Reid Blanco M.D. TECHNIQUE: Duplex sonography with color-flow Doppler was used to evaluate the visualized segments of the main renal arteries. The patient was evaluated in a fasting state. Imaging in a supine and decubitus position was performed. Limited evaluation of the arcuate waveforms and resistive indices were performed. FINDINGS: The overall quality of the study is adequate. The kidneys are normal in size, shape, and location. Renal parenchyma is echogenic The right kidney measures 9.5cm in length and the left kidney measures 10.5cm in length. No solid renal masses, abnormal calcifications, or hydronephrosis is seen. The main right renal artery is well visualized from the aorta to the hilum. The peak systolic velocity in the right main renal artery is 149 cm/sec. This is consistent with a 0 to 49% stenosis in the main right renal artery. The arcuate waveforms are normal. The resistive index is normal. The main left renal artery is tortuous and only visualized in segments. The peak systolic velocity in the main left renal artery is 180 cm/sec. This corresponds to a 0 to 49% stenosis in the main left renal artery. The arcuate waveforms and resistive indices are normal. IMPRESSION: 1. The main renal arteries are fairly well visualized. 2. No sonographically significant stenosis is identified. 3. The kidneys are normal and symmetric in size. There are no solid renal masses, abnormal calcifications or hydronephrosis noted. Renal parenchyma is echogenic
[2018-02-06 07:03] LABS: BASO # 0.04 K/mm3 (0.0-2.0); BASO % 0.7 % (0.0-3.0); EOS # 0.1 (0.0-0.7); GRAN # 3.12 (1.4-6.5); GRAN % 57.9 % (50.0-68.0); HEMOGLOBIN 8.9 g/dL (12.0-16.0); LYMPH # 1.8 (1.2-3.4); LYMPH % 33.5 % (22.0-35.0); MEAN CELL VOLUME 85.8 fl (80.0-105.0); MEAN CORPUSCULAR HGB CONC 32.6 g/dl (31.0-37.0); MEAN PLATELET VOLUME 10.4 fl (7.0-11.0); MONO # 0.3 (0.1-0.6); MONO % 5.9 % (1.0-6.0); RBC 3.18 10^6/uL (3.5-6.1); RED CELL DISTRIBUTION WIDTH 14.2 % (11.5-14.5); WHITE BLOOD COUNT 5.4 10^3/ul (4.5-11.0)
[2018-02-06 07:15] LABS: IRON 27 ug/dL (45-180)
[2018-02-06 07:24] LABS: % IRON SATURATION 9 % (20-55); TOTAL IRON BINDING CAPACITY 291 ug/dL (265-497)
[2018-02-06 07:28] LABS: ALB/GLOB RATIO 0.9 (1.1-1.8); ALBUMIN 3.7 g/dL (3.0-4.8); CALCIUM 9.4 mg/dL (8.4-10.5)
[2018-02-06] MEDS: Sodium Chloride 0.9% 1,000 ML IV SCH ×2 (08:00→17:53)
[2018-02-06] MEDS: Pantoprazole 40 mg EC Tab PO SCH (10:54)
--- NOTE | 2018-02-06 12:49 | PN ---
SUBJECTIVE: The patient was seen and examined at bedside on the remote telemetry lopez. No acute events overnight. She remains afebrile and with improved hemodynamics with her blood pressure noted to be in the 100-140/50-60 range. She remains off Tridal drip and some of her oral antihypertensives have been placed on hold. This morning she reports resolution of her headache and overall states she feels well. OBJECTIVE: VITAL SIGNS: Temperature 98.7, pulse 73, blood pressure 142/61, respiratory rate 18, oxygen saturation 98% on room air. GENERAL: No apparent distress. HEENT: PERRL, EOMI. No scleral icterus. Mild conjunctival pallor is noted. NECK: No JVD. LUNGS: Clear to auscultation. CARDIOVASCULAR: Regular rate and rhythm. Normal S1 and S2. ABDOMEN: Normoactive bowel sounds. Soft, nontender and nondistended. EXTREMITIES: No edema. NEUROLOGIC: Awake, alert and oriented x 3. No focal motor deficits. LABORATORY DATA: WBC 5.4, hemoglobin 8.9, hematocrit 27, platelets 166. Sodium 143, potassium 4.3, chloride 111, bicarb 23, BUN 37, creatinine 2.7, glucose 95. IMAGING STUDIES: Renal artery ultrasound with Doppler demonstrated no significant stenoses and kidneys to be normal size and symmetric with no masses, calcifications or hydronephrosis. ASSESSMENT: The patient is a 62 year old woman with a past medical history of CAD s/p PCI with stent placement, HTN, PVD and COPD who presented with a 1 day history of near syncope and posterior headache and was admitted to the remote telemetry lopez for management of hypertensive urgency. PLAN: 1. Hypertensive urgency, resolved. The patient remains off Tridal drip and hydralazine has been placed on hold. She was hypotensive yesterday and started on normal saline at 100 mL/hour and remains normotensive. Continue Amlodipine 5 mg p.o. daily, Labetalol 200 mg p.o. b.i.d. and Clonidine 0.1 mg q. 4 p.r.n. 2. BRANT on CKD stage 2. Input from Dr. Banks noted and greatly appreciated. Renal artery ultrasound reviewed and demonstrates no acute pathology. Continue care as per Dr. Banks. 3. CAD s/p PCI with stent placement. Continue Aspirin 81 mg p.o. daily and Labetalol 200 mg p.o. b.i.d. The patient declines statin due to history of myopathy. 4. COPD. Continue supplemental oxygen and bronchodilators as needed. 5. PVD. Continue Aspirin 81 mg p.o. daily. Again, the patient declines statin due to history of myopathy. 6. Anxiety disorder. Continue Xanax 1 mg p.o. t.i.d. 7. Sciatica. Continue Tramadol 50 mg p.o. q. 8 hours p.r.n. pain. 8. Multiple myeloma, in remission. She is followed by Dr. Duncan in [place], [place]. 9. Prophylaxis. GI prophylaxis is not indicated as the patient is eating. DVT prophylaxis is not indicated as the patient is ambulatory. CODE STATUS: Full code. Darryn Cedeno MD ABBY
[2018-02-06 13:40] LABS: FERRITIN 36.9 ng/mL
--- NOTE | 2018-02-06 14:42 | PN ---
DATE: SUBJECTIVE: The patient is currently seen lying comfortable supine in bed, IV fluids are infusing. The patient apparently had an episode of hypotension yesterday, being given all of oral blood pressure medication together with the Tridal. Currently everything is on hold. Her blood pressure this morning has drifted higher. It is now 142/61, her lowest documented is 100/67. The patient states that she developed a headache from the Tridal. Her BUN and creatinine remain elevated. Her renal artery Doppler study was done and showed no renal artery stenosis, but she does have significantly echogenic kidneys consistent with likely hypertensive nephrosclerosis. MEDICATIONS: Medication list reviewed. The patient is currently on aspirin, p.r.n. clonidine, Fioricet, Protonix, normal saline, p.r.n. Tylenol, p.r.n. Ultram, and p.r.n. Xanax. What presently on hold is Apresoline, Norvasc, and labetalol. OBJECTIVE: INTAKE/OUTPUT: 420/550. VITAL SIGNS: Blood pressure presently is 142/61 at 6:00 a.m., temperature 98.7, respiratory rate 18 with a pulse of 68. HEENT: Shows her to be normocephalic, atraumatic. Conjunctivae are pale. Sclera are nonicteric. NECK: Supple. No neck vein distention. CHEST: Clear to auscultation and percussion. No rales, rhonchi or wheezing. CARDIOVASCULAR: Shows a regular rate and rhythm with no audible murmurs, rubs or gallops. ABDOMEN: Soft. Bowel sounds normal. No rebound. No guarding. No masses. EXTREMITIES: Show no cyanosis, no clubbing or edema. LABORATORY DATA AND IMAGING: CBC: Today, white blood cell count is 5.4, hemoglobin 8.9 with a platelet count of 166,000. Chemistry: Normal electrolytes. BUN 37 with a creatinine of 2.7. Her baseline BUN is in the low 20 range with a baseline creatinine of 1.8 dating back to 2017. Calcium is 9.4, phosphorus is 4.6. Iron saturations are low at 9%. Liver enzymes are normal. Urinalysis, urine sodium is 55. Remainder of her urine studies are pending. 24-hour urines are in progress. Urinalysis ordered was not done. Urine Larry stain was not done and urine creatinine was not done. ASSESSMENT: 1. Acute renal failure superimposed on chronic kidney disease stage III. Again, her baseline creatinine is in the 1.8 range. This is likely in the setting of hypertensive nephrosclerosis. Her renal artery Doppler study done shows no evidence for renal artery stenosis. I would like to restart oral medication. I will start with Trandate and Norvasc and hydralazine at lower doses. 2. History of atherosclerotic heart disease, status post percutaneous transluminal coronary angioplasty and stent. 3. Past history of near syncope at home secondary to elevated blood pressure readings. 4. History of chronic obstructive pulmonary disease secondary to history of cigarette smoking. The patient continues to smoke cigarettes. 5. History of peripheral vascular disease. 6. History of internal carotid artery stenosis and right lower extremity peripheral vascular disease status post stent placement. 7. History of low back pain and sciatica. 8. History of anemia in part secondary to chronic kidney disease in part secondary to iron deficiency and in part, possibly secondary to what she describes as smoldering myeloma. 9. History of smoldering myeloma. The patient states that she follows up with Dr. Duncan in [place] at the Hematology/Oncology group. PLAN: 1. Restart blood pressure medication cautiously and with parameters. 2. Still waiting for her urinalysis as ordered. 3. 24-hour urines are in progress. 4. Vitamin D, 25-hydroxy level, PTH are pending. Phosphorus level was mildly elevated at 4.6, likely consistent with secondary hyperparathyroidism. The patient will continue renal diet and as necessary binder therapy will be started. 5. Avoid all nephrotoxic agents. 6. Avoid IRVIN inhibitors, angiotensin receptor blockers. Jean Paul Banks MD ABBY
[2018-02-06 14:46] LABS: URINE 24 HOUR TOTAL PROTEIN 574 mg/24HR (42-225); URINE COLLECTION TIME 24 HOURS; URINE TOTAL VOLUME 1025 mL (800-1400)
[2018-02-06 14:47] LABS: URINE CREATININE 72.3 mg/dL
[2018-02-07] MEDS: Sodium Chloride 0.9% 1,000 ML IV SCH (04:20)
[2018-02-07 06:51] LABS: BASO # 0.03 K/mm3 (0.0-2.0); BASO % 0.6 % (0.0-3.0); EOS # 0.1 (0.0-0.7); EOS % 2.9 % (1.5-5.0); GRAN # 2.58 (1.4-6.5); GRAN % 54.2 % (50.0-68.0); HEMOGLOBIN 8.7 g/dL (12.0-16.0); LYMPH # 1.7 (1.2-3.4); LYMPH % 35.8 % (22.0-35.0); MEAN CELL VOLUME 85.5 fl (80.0-105.0); MEAN CORPUSCULAR HEMOGLOBIN 28.7 pg (25.0-35.0); MEAN CORPUSCULAR HGB CONC 33.6 g/dl (31.0-37.0); MEAN PLATELET VOLUME 10.1 fl (7.0-11.0); MONO # 0.3 (0.1-0.6); MONO % 6.5 % (1.0-6.0); RBC 3.03 10^6/uL (3.5-6.1); RED CELL DISTRIBUTION WIDTH 14.2 % (11.5-14.5); WHITE BLOOD COUNT 4.8 10^3/ul (4.5-11.0)
[2018-02-07 07:07] LABS: ALB/GLOB RATIO 0.9 (1.1-1.8); ALBUMIN 3.6 g/dL (3.0-4.8); CALCIUM 9.4 mg/dL (8.4-10.5)
--- NOTE | 2018-02-07 09:05 | CON ---
DATE: 02/04/2018 LOCATION: The patient is in room 375, bed 2. REASON FOR CONSULTATION: Uncontrolled hypertension, coronary artery disease status post stent insertion, near syncope, posterior headaches, and renal dysfunction. HISTORY OF PRESENT ILLNESS: Patient is a 62-year-old female admitted to [facility] with a history that the patient is a known case of coronary artery disease, history of stent insertion, was having posterior headaches and near syncope. Patient came to the emergency room and blood pressure was 232/74. Patient recently also have been losing weight. Denies chest pain or shortness of breath. PAST MEDICAL HISTORY: Significant for hypertension, coronary artery disease, status post stent few years ago. Patient's stress test on 10/25/2017 showed ischemia with ejection fraction of 70%, so patient had a cath on 11/04/2017 which showed ejection fraction of 65% to 70%, nonobstructive coronary artery disease, patent stent in LAD, circ is a moderate-sized vessel with approximately 60% to 70% narrowing and immediately post stenosis area. There is a hairpin-like block which is not suitable for angioplasty or stent insertion. Patient's left renal artery shows 60% to 70% stenosis. Patient also found to have hyperlipidemia, COPD, anxiety disorder, carotid artery stenosis, sciatica. She gets a severe back pain. MEDICATIONS AT HOME: Patient was taking tramadol 50 mg p.o. q. 8 hours p.r.n. for pain, labetalol 100 mg b.i.d., Nexium 40 daily, aspirin 81 daily, Xanax 1 mg t.i.d., valsartan 150 mg p.o. daily. PERSONAL HISTORY: Patient still smokes and drinks, only socially. FAMILY HISTORY: Positive for coronary artery disease and hypertension. REVIEW OF SYSTEMS: All the systems reviewed. Positives mentioned in the history, otherwise negative. PHYSICAL EXAMINATION: VITAL SIGNS: Blood pressure 232/74 and now the blood pressure has come down to 143/79, respirations 18, pulse of 68, patient is afebrile. HEENT: Head is normocephalic. Eyes: Pupils normal. Conjunctivae slightly pale. NECK: JVP low. Carotids equal. THORAX: AP diameter normal. LUNGS: Clear. CARDIOVASCULAR: S1 and S2. ABDOMEN: Soft. No tenderness. No organomegaly. Bowel sound normal. EXTREMITIES: No clubbing. No cyanosis. LABORATORY DATA: WBC 5.7, hemoglobin 9.6, hematocrit 28.6, platelets 154. Sodium 141, potassium 3.8, BUN 40, creatinine 2.4. AST and ALT normal. Troponin x3 negative. Total protein and albumin normal. TSH 2.10. EKG showed regular sinus rhythm, LVH, ST-T changes. Chest x-ray, no active disease. DIAGNOSES: Uncontrolled hypertension, near syncope, coronary artery disease, recent cath in 11/04/2017 - findings as described above, patient also had left renal artery stenosis 60% to 70%, as per patient recent weight loss, headache, history of chronic obstructive pulmonary disease, hyperlipidemia, anxiety disorder, sciatica. Clinically patient does not have any anginal symptoms. She has had a recent cath as discussed above. PLAN: Patient had a recent cath and findings are above. Patient on hydralazine 50 b.i.d., aspirin 81 daily, labetalol 100 mg b.i.d. Patient also on nitroglycerin drip to lower the blood pressure. We will add amlodipine 10 mg p.o. daily starting today. I discussed with the patient about doing MRA or ultrasound renal artery stenosis evaluation. Patient states she does not want to have procedure of renal artery. So I did not order MRA or ultrasound for the renal artery followup. No evidence of OH. No evidence of anginal symptoms. So we will continue present therapy and we will follow with you. Ata Funez MD
[2018-02-07] MEDS ORDERED: Darbepoetin Alfa 60 mcg/ml Inj SC ONE (10:00)
[2018-02-07] MEDS: Pantoprazole 40 mg EC Tab PO SCH ×2 (10:18→10:26)
--- NOTE | 2018-02-07 11:52 | PN ---
SUBJECTIVE: The patient was seen and examined at bedside on the remote telemetry lopez. No acute events overnight. She remains afebrile, but is noted to have increasing blood pressure reads ranging from 160-185/60-70. She remains asymptomatic and this morning states overall she feels okay. PHYSICAL EXAMINATION VITAL SIGNS: Temperature 98.2, pulse 68, blood pressure 185/64, respiratory rate 18, oxygen saturation 97% on room air. GENERAL: No apparent distress. HEENT: PERRL, EOMI. No scleral icterus. Mild conjunctival pallor is noted. NECK: No JVD. LUNGS: Clear to auscultation. CARDIOVASCULAR: Regular rate and rhythm. Normal S1 and S2. ABDOMEN: Normoactive bowel sounds. Soft, nontender and nondistended. EXTREMITIES: No edema. NEUROLOGIC: Awake, alert and oriented x3. No focal motor deficits. LABORATORY DATA: WBC 4.8, hemoglobin 8.7, hematocrit 26, platelets 171. Sodium 143, potassium 3.8, chloride 113, bicarb 22, BUN 32, creatinine 2.4, glucose 93. ASSESSMENT: The patient is a 62 year old woman with a past medical history of CAD s/p PCI with stent placement, HTN, PVD and COPD who presented with a 1 day history of near syncope and posterior headache and was admitted for management of hypertensive urgency. PLAN: 1. Hypertensive urgency, resolved. The patient remains off Tridal drip and hydralazine remains on hold. She is noted to have increasing blood pressure reads. We will discontinue IV fluids and increase amlodipine to Amlodipine 10 mg p.o. daily. Continue Labetalol 200 mg p.o. b.i.d. 2. BRANT on CKD stage 2. Input from Dr. Banks noted and greatly appreciated. Renal artery ultrasound demonstrates no acute pathology. Continue care as per Dr. Banks. 3. CAD s/p PCI with stent placement. Continue Aspirin 81 mg p.o. daily and Labetalol 200 mg p.o. b.i.d. The patient declines statin due to history of myopathy. 4. COPD. Continue supplemental oxygen and bronchodilators as needed. 5. PVD. Continue Aspirin 81 mg p.o. daily. Again, the patient declines statin due to history of myopathy. 6. Anxiety disorder. Continue Xanax 1 mg p.o. t.i.d. 7. Sciatica. Continue Tramadol 50 mg p.o. q.8 hours p.r.n. pain. 8. Multiple myeloma, in remission. She is followed by Dr. Duncan in [place], [place]. 9. Anemia of chronic disease. The patient is receiving Venofer and Aranesp as per Dr. Banks. 10. Secondary hyperparathyroidism. 11. Prophylaxis. GI prophylaxis is not indicated as the patient is eating. DVT prophylaxis is not indicated as the patient is ambulatory. CODE STATUS: Full code. Darryn Cedeno MD MTDD
--- NOTE | 2018-02-07 14:49 | PN ---
DATE: SUBJECTIVE: The patient is currently seen lying comfortable in bed. Blood pressure control has improved. Her systolics are in the low 150s with diastolics now in the 60 to 70 range. The patient is not complaining of any headaches, dizziness, or lightheadedness. Her renal artery study was negative. She does have echogenic kidneys consistent with likely hypertensive nephrosclerosis. Her 24-hour urine showed a creatinine clearance of 18 mL per minute with 574 mg of protein in the urine, also likely consistent with hypertensive nephrosclerosis. MEDICATIONS: Medication list reviewed. The patient is currently on clonidine p.r.n., IV iron, Norvasc 10 mg a day, labetalol 200 mg a day, Ultram p.r.n., Xanax p.r.n., Fioricet p.r.n. OBJECTIVE: INTAKE/OUTPUT: Intake 1380, output 1150. VITAL SIGNS: Blood pressure has been ranging from 153 to 184 systolic, diastolics ranging from 60 to 64. Heart rate is 62. Temperature 97.6, respiratory rate of 18. HEENT: Shows her to be normocephalic, atraumatic. Conjunctivae pale. Sclerae nonicteric. NECK: Supple. No neck vein distention. CHEST: Clear to auscultation and percussion. No rales, no rhonchi or wheezing. CARDIOVASCULAR: Regular rate and rhythm without audible murmurs, rubs, or gallops. ABDOMEN: Soft. Bowel sounds normal. No rebound, no guarding, no masses. EXTREMITIES: Show no cyanosis, no clubbing, no edema. LABORATORY DATA AND IMAGING: CBC: White blood cell count today 4.8, hemoglobin 8.7, and platelet count is 171,000. Chemistry shows sodium of 143, potassium of 3.8, chloride 113, CO2 of 22. BUN is 32 down from a high of 40. Baseline BUN was in the 20s back in late 2017. Creatinine is down from a high of 2.7 down to 2.4. Baseline creatinine is in the 1.8 range dating back to the fall of 2017. Liver enzymes are normal. Albumin level is 3.6. A 24-urine showed a creatinine clearance of 18 mL per minute with 1025 mL of urine in the collection and 574 mg of protein. Perhaps a slight under collection, but likely not far from where she is at. ASSESSMENT: 1. Acute renal failure superimposed on chronic kidney disease stage 3. In light of her elevated BUN and creatinine above baseline levels, I will use IRVIN inhibitors, angiotensin receptor blockers. The patient may continue on Trandate and/or Norvasc. I will add low-dose hydralazine back. 2. History of arteriosclerotic heart disease, status post percutaneous transluminal coronary angioplasty and stents. 3. History of near syncope at home secondary to elevated blood pressure readings. 4. History of chronic obstructive pulmonary disease secondary to long history of continued cigarette smoking. 5. History of peripheral vascular disease, internal carotid artery stenosis, right lower extremity peripheral vascular disease, status post stent placement. 6. History of low back pain with sciatica. 7. History of anemia in part secondary to chronic kidney disease, in part secondary to iron deficiency. The patient has received one dose of Venofer. The patient has received one dose of Aranesp today. 8. History of smoldering myeloma. The patient follows with Dr. Calderon in [place] at [facility]. PLAN 1. Continue present blood pressure medication. I will add back hydralazine. 2. Urine's 24-hour reviewed with the patient and her family. 3. Vitamin D level was low at 17.1. PTH level was pending. The patient will start vitamin D supplements. This is in the setting of chronic kidney disease stage 4. 4. No IRVIN inhibitors, angiotensin receptor blockers in light of her BUN and creatinine elevation. 5. Avoid all nephrotoxic agents. 6. I did tell the patient that of her blood pressure improves and remains controlled over the next 24 hours, perhaps discharge home. The patient will have followup with Dr. Cedeno and she should also be seen by Renal on a periodic basis in light of her chronic kidney disease and hypertensive nephrosclerosis. Jean Paul Banks MD
--- NOTE | 2018-02-07 19:41 | CP.PCM.PN ---
Subjective - Date & Time of Evaluation Date of Evaluation: 02/07/18 Time of Evaluation: 19:34 - Subjective Subjective: Patient was seen for complaints of dizziness and numbness in both legs. No other complaints. Dizziness has passed now. BP 132/72. Denies chest pain, sob, nausea, sweating , palpitations,weakness , paraesthesia. Medical record was reviewed. She has an order for xanax TID. She did not have dose from this afternoon. This 62 year old woman was admitted near syncope, posterior headache, hypertensive emergency. Has PMH of HTN, CAD, S/P PCI, PVD, HLD, COPD, anxiety, ASHD,anemia, carotid artery stenosis, ARF, CKD,Low backpain, sciatica,allergy to PCN, macrolides. Objective - Vital Signs/Intake and Output Vital Signs (last 24 hours): Temp Pulse Resp BP Pulse Ox 97.6 F 68 18 151/61 H 97 02/07/18 12:00 02/07/18 18:00 02/07/18 12:00 02/07/18 17:15 02/07/18 06:00 Intake and Output: 02/07/18 02/08/18 18:59 06:59 Intake Total 600 Balance 600 - Medications Medications: Current Medications Acetaminophen/Butalbital/Caffeine (Fioricet) 1 tab PO Q6H PRN PRN Reason: Pain, severe (8-10) Last Admin: 02/07/18 11:38 Dose: 1 tab Alprazolam (Xanax) 1 mg PO TID PRN; Protocol PRN Reason: Anxiety Last Admin: 02/07/18 08:48 Dose: 1 mg Amlodipine Besylate (Norvasc) 10 mg PO DAILY [facility] Last Admin: 02/07/18 10:18 Dose: 10 mg Aspirin (Aspirin Chewable) 81 mg PO DAILY [facility] Last Admin: 02/07/18 10:20 Dose: 81 mg Clonidine HCl (Catapres) 0.1 mg PO Q4H PRN PRN Reason: hypertension Last Admin: 02/07/18 06:14 Dose: 0.1 mg Home Med (Home Med) 0 unit PO DAILY [facility] Hydralazine HCl (Apresoline) 50 mg PO BID [facility] Last Admin: 02/07/18 17:15 Dose: 50 mg Nitroglycerin/Dextrose (Nitroglycerin 50 Mg/250 Ml D5w) 50 mg in 250 mls @ 3 mls/hr IV .Q24H PRN; 10 MCG/MIN PRN Reason: Systolic Blood Pressure Last Admin: 02/04/18 06:45 Dose: 3 mls/hr Iron Sucrose 200 mg/ Sodium (Chloride) 110 mls @ 110 mls/hr IVPB QOTHERDAY [facility] Stop: 02/14/18 10:59 Last Admin: 02/06/18 12:59 Dose: 110 mls/hr Labetalol HCl (Trandate) 200 mg PO BID [facility] Last Admin: 02/07/18 17:15 Dose: 200 mg Metoprolol Tartrate (Lopressor) 12.5 mg PO BID [facility] Last Admin: 02/07/18 17:15 Dose: 12.5 mg Tramadol HCl (Ultram) 50 mg PO Q8H PRN PRN Reason: Pain, moderate (4-7) Last Admin: 02/04/18 02:21 Dose: 50 mg - Labs Labs: 02/07/18 06:00 02/07/18 06:00 PT 11.6 SECONDS (9.4-12.5) 02/03/18 12:20 INR 1.01 (0.93-1.08) 02/03/18 12:20 APTT 30.6 Seconds (25.1-36.5) 02/03/18 12:20 Most Recent Lab Values WBC 4.8 10^3/ul (4.5-11.0) 02/07/18 06:00 RBC 3.03 10^6/uL (3.5-6.1) L 02/07/18 06:00 Hgb 8.7 g/dL (12.0-16.0) L 02/07/18 06:00 Hct 25.9 % (36.0-48.0) L 02/07/18 06:00 MCV 85.5 fl (80.0-105.0) 02/07/18 06:00 MCH 28.7 pg (25.0-35.0) 02/07/18 06:00 MCHC 33.6 g/dl (31.0-37.0) 02/07/18 06:00 RDW 14.2 % (11.5-14.5) 02/07/18 06:00 Plt Count 171 10^3/uL (120.0-450.0) 02/07/18 06:00 MPV 10.1 fl (7.0-11.0) 02/07/18 06:00 Gran % 54.2 % (50.0-68.0) 02/07/18 06:00 Lymph % (Auto) 35.8 % (22.0-35.0) H 02/07/18 06:00 [place] % (Auto) 6.5 % (1.0-6.0) H 02/07/18 06:00 Eos % (Auto) 2.9 % (1.5-5.0) 02/07/18 06:00 Baso % (Auto) 0.6 % (0.0-3.0) 02/07/18 06:00 Gran # 2.58 (1.4-6.5) 02/07/18 06:00 Lymph # (Auto) 1.7 (1.2-3.4) 02/07/18 06:00 [place] # (Auto) 0.3 (0.1-0.6) 02/07/18 06:00 Eos # (Auto) 0.1 (0.0-0.7) 02/07/18 06:00 Baso # (Auto) 0.03 K/mm3 (0.0-2.0) 02/07/18 06:00 PT 11.6 SECONDS (9.4-12.5) 02/03/18 12:20 INR 1.01 (0.93-1.08) 02/03/18 12:20 APTT 30.6 Seconds (25.1-36.5) 02/03/18 12:20 Sodium 143 mmol/L (132-148) 02/07/18 06:00 Potassium 3.8 mmol/L (3.6-5.0) 02/07/18 06:00 Chloride 113 mmol/L (98-107) H 02/07/18 06:00 Carbon Dioxide 22 mmol/L (21-33) 02/07/18 06:00 Anion Gap 12 (10-20) 02/07/18 06:00 BUN 32 mg/dL (7-21) H 02/07/18 06:00 Creatinine 2.4 mg/dl (0.7-1.2) H 02/07/18 06:00 Est GFR ( Amer) 25 02/07/18 06:00 Est GFR (Non-Af Amer) 20 02/07/18 06:00 Random Glucose 93 mg/dL (70-110) 02/07/18 06:00 Calcium 9.4 mg/dL (8.4-10.5) 02/07/18 06:00 Phosphorus 4.0 mg/dL (2.5-4.5) 02/07/18 06:00 Magnesium 1.9 mg/dL (1.7-2.2) 02/07/18 06:00 Iron 27 ug/dL (45-180) L 02/06/18 06:00 TIBC 291 ug/dL (265-497) 02/06/18 06:00 % Saturation 9 % (20-55) L 02/06/18 06:00 Ferritin 36.9 ng/mL 02/06/18 06:00 Total Bilirubin 0.4 mg/dL (0.2-1.3) 02/07/18 06:00 AST 18 U/L (14-36) 02/07/18 06:00 ALT 15 U/L (7-56) 02/07/18 06:00 Alkaline Phosphatase 60 U/L (38-126) 02/07/18 06:00 Total Creatine Kinase 81 U/L (35-230) 02/03/18 12:20 Troponin I 0.03 ng/mL D 02/04/18 06:20 Total Protein 7.6 g/dL (5.8-8.3) 02/07/18 06:00 Albumin 3.6 g/dL (3.0-4.8) 02/07/18 06:00 Globulin 4.0 gm/dL 02/07/18 06:00 Albumin/Globulin Ratio 0.9 (1.1-1.8) L 02/07/18 06:00 25-OH Vitamin D Total 17.1 NG/ML (30.0-100.0) L 02/06/18 06:00 TSH 3rd Generation 2.10 mIU/mL (0.46-4.68) 02/04/18 06:20 PTH Intact Whole Molec 84 pg/mL (14-64) H 02/05/18 10:00 Ur Random Sodium 55 meq/L 02/05/18 13:00 Urine Collection Time 24 HOURS 02/06/18 14:00 Urine Total Volume 1025 mL (800-1400) 02/06/18 14:00 Creatinine Clearance 18.0 ml/min (80-120) L 02/06/18 14:00 Ur Protein 24 Hr Calc 574 mg/24HR (42-225) H 02/06/18 14:00 - Constitutional Appears: Well, No Acute Distress - Head Exam Head Exam: ATRAUMATIC, NORMAL INSPECTION, NORMOCEPHALIC - Eye Exam Eye Exam: Normal appearance - ENT Exam ENT Exam: Normal Exam - Neck Exam Neck Exam: Normal Inspection - Respiratory Exam Respiratory Exam: NORMAL BREATHING PATTERN - Cardiovascular Exam Cardiovascular Exam: REGULAR RHYTHM. absent: JVD - GI/Abdominal Exam GI & Abdominal Exam: absent: Distended - Rectal Exam Rectal Exam: Deferred - Exam Additional comments: Deferred. - Extremities Exam Extremities Exam: Normal Inspection - Back Exam Back Exam: NORMAL INSPECTION - Neurological Exam Neurological Exam: Alert, Awake - Psychiatric Exam Psychiatric exam: Normal Affect, Normal Mood - Skin Skin Exam: Normal Color Assessment and Plan - Assessment and Plan (Free Text) Assessment: Anxiety. Legs numbness. Dizziness. HTN. CAD. CKD. PVD. HLD. COPD. Anemia. Plan: Xanax 1 mg PO x 1. Continue present management.
--- NOTE | 2018-02-07 20:24 | PN ---
DATE: 02/07/2018 REASON FOR CONSULTATION: Followup uncontrolled hypertension, coronary artery disease, status post PTCA, admitted with headache, uncontrolled hypertension, renal insufficiency. The patient denies any chest pain, shortness of breath, any palpitation. OBJECTIVE: GENERAL: Not in apparent distress. VITAL SIGNS: As follows: Temperature afebrile, heart rate 62, blood pressure 152/60. HEENT: PERRLA. Extraocular muscles intact. NECK: Supple. No carotid bruit or thyromegaly. CHEST: Clear to auscultation. HEART: S1 and S2, regular. ABDOMEN: Soft. EXTREMITIES: Clubbing and cyanosis negative. LABORATORY DATA: Blood workup as follows: WBC 4.8, hemoglobin 8.3, hematocrit 25.9, platelet count 171. Chemistry shows sodium 143, potassium 3.8, chloride , carbon dioxide 22, anion gap of 12, BUN 32, creatinine 2.4. IMPRESSION: A 62-year-old female with past medical history significant for coronary artery disease, status post percutaneous transluminal coronary angioplasty in the past, history of coronary artery disease, last catheterization 11/04/2017, which showed ejection fraction , non-obstructive coronary artery disease, patent stent in the LAD, circumflex, moderate disease 60% to 70% and having patent left renal artery 60 to 70% stenosis. The patient also has hypertension and hyperlipidemia, admitted with uncontrolled hypertension, near syncope and renal insufficiency, history of back pain, history of chronic obstructive pulmonary disease. The patient has baseline creatinine around 1.2 to 2. RECOMMENDATIONS: Avoid nephrotoxic medication. No evidence of acute KS. Troponin remains flat since admission 0.02, uncontrolled hypertension, excessively controlled blood pressure, continue aspirin, continue labetalol, continue amlodipine. MRA of the kidney was suggested because of 70% stenosis. The patient does not want, no anginal symptoms. We will treat aggressively for now and we will follow with you. The patient has a prior stent done by Dr. Davila in the past. Last catheterization was done by me on 11/04/2017 when the patient came for the second opinion and does not want to go to Dr. Davila. We will add low-dose of beta-maikel as blood pressure and heart rate is tolerated. The patient currently is not in beta-maikel. We will treat aggressively. No intervention at this point. Since the patient has coronary artery disease, not amenable for PCI because of anatomy and a hairpin turn at the circ, so we will treat aggressively medical treatment. Thank you, Dr. Cedeno, for providing us the opportunity in taking care of the patient, Carmina Palacios. Ata Singh MD
[2018-02-08 01:28] VITALS: RESP 20
[2018-02-08 06:44] VITALS: BP 127/58; PULSE 68; TEMP 98; O2SAT 97
[2018-02-08 07:15] LABS: BASO # 0.03 K/mm3 (0.0-2.0); BASO % 0.5 % (0.0-3.0); EOS # 0.2 (0.0-0.7); EOS % 3.4 % (1.5-5.0); GRAN # 2.99 (1.4-6.5); GRAN % 53.6 % (50.0-68.0); HEMOGLOBIN 9.7 g/dL (12.0-16.0); LYMPH % 35.7 % (22.0-35.0); MEAN CELL VOLUME 85.5 fl (80.0-105.0); MEAN CORPUSCULAR HEMOGLOBIN 28.7 pg (25.0-35.0); MEAN CORPUSCULAR HGB CONC 33.6 g/dl (31.0-37.0); MEAN PLATELET VOLUME 10.5 fl (7.0-11.0); MONO # 0.4 (0.1-0.6); MONO % 6.8 % (1.0-6.0); RBC 3.38 10^6/uL (3.5-6.1); RED CELL DISTRIBUTION WIDTH 14.1 % (11.5-14.5); WHITE BLOOD COUNT 5.6 10^3/ul (4.5-11.0)
[2018-02-08 07:44] LABS: ALBUMIN 4.1 g/dL (3.0-4.8); CALCIUM 9.5 mg/dL (8.4-10.5)
[2018-02-08] MEDS ORDERED: Potassium Chloride 20 mEq ER Tab PO ONE (08:03)
--- NOTE | 2018-02-08 09:47 | PN ---
SUBJECTIVE: The patient was seen and examined at the bedside on the remote telemetry lopez. No acute events overnight. She remains afebrile and hemodynamically stable. This morning she states she feels well, offers no complaints and would like to go home. OBJECTIVE VITAL SIGNS: Temperature 98, pulse 68, blood pressure 127/58, respiratory rate 20, oxygen saturation 97% on room air. GENERAL: No apparent distress. HEENT: PERRL, EOMI. No scleral icterus. No conjunctival pallor. NECK: Supple with full range of motion. No JVD. LUNGS: Clear to auscultation. CARDIOVASCULAR: Regular rate and rhythm. Normal S1 and S2. ABDOMEN: Normoactive bowel sounds. Soft, nontender, nondistended. EXTREMITIES: No edema. NEUROLOGIC: Awake, alert, and oriented x3. No focal motor deficits. LABORATORY DATA: WBC 5.6, hemoglobin 9.7, hematocrit 29, platelets 192,000. Sodium 145, potassium 3.4, chloride 111, bicarbonate 22, BUN 28, creatinine 2.7 , glucose 90. ASSESSMENT: The patient is a 62 year old woman with a past medical history of CAD s/p PCI with stent placement, PVD, COPD and hypertension who presented with a 1 day history of near syncope and posterior headache and was admitted for management of hypertensive urgency. PLAN 1. Hypertensive urgency, resolved. The patient remains off Tridil drip. She is presently on Amlodipine 10 mg p.o. daily, Labetalol 200 mg p.o. b.i.d. and Hydralazine 50 mg p.o. b.i.d. 2. BRANT on CKD stage 3. Input from Dr. Banks appreciated. The patient will have outpatient followup scheduled with Dr. Banks and his Nephrology group. 3. CAD s/p PCI with stent placement. Continue Aspirin 81 mg p.o. daily and Labetalol 200 mg p.o. b.i.d. The patient declines statin due to history of myopathy. 4. COPD. Continue supplemental oxygen and bronchodilators as needed. 5. PVD. Continue Aspirin 81 mg p.o. daily. Again, the patient declines statin due to history of myopathy. 6. Anxiety disorder. Continue Xanax 1 mg p.o. t.i.d. 7. Sciatica. Continue Tramadol 50 mg p.o. q. 8 hours p.r.n. pain. 8. Multiple myeloma, in remission. The patient to follow up with Dr. Duncan in [place] upon discharge. 9. Anemia of chronic disease. The patient is s/p 1 dose of Aranesp and 1 infusion of Venofer. She will follow up with Dr. Duncan upon discharge. 10. Secondary hyperparathyroidism. 11. Prophylaxis. GI prophylaxis is not indicated as the patient is eating. DVT prophylaxis is not indicated as the patient is ambulatory. CODE STATUS: Full code. Darryn Cedeno MD MTDD
[2018-02-08] MEDS ORDERED: NEXIUM 20 MG PO SCH (10:00)
--- NOTE | 2018-02-08 15:31 | PN ---
DATE: REASON FOR CONSULTATION AND FOLLOWUP: Uncontrolled hypertension; coronary artery disease, status post PTCA, admitted with headache and uncontrolled hypertension. SUBJECTIVE: Denies any chest pain, shortness of breath, any palpitations. OBJECTIVE GENERAL: Not in apparent distress. VITAL SIGNS: Temperature afebrile, heart rate 68, blood pressure 127/58. HEENT: PERRLA. Extraocular muscles intact. NECK: Supple. No carotid bruit or thyromegaly. CHEST: Clear to auscultation. HEART: S1 and S2 regular. ABDOMEN: Soft. EXTREMITIES: Clubbing and cyanosis negative. LABORATORY DATA: Blood workup as follows: WBC 5.6, hemoglobin 9.3, hematocrit 28.9, platelet count 192,000. Chemistry shows sodium 145, potassium 3.4, chloride 111, carbon dioxide 22, anion gap of 15, BUN 28, creatinine 2.7. IMPRESSION: Hypokalemia, chronic renal insufficiency, coronary artery disease, admitted with uncontrolled hypertension and now fairly stable. Blood pressure is stable; history of coronary artery disease, last catheterization on 11/04/2017, shows ejection fraction preserved; nonischemic coronary artery disease, patent stent in LAD and circumflex, moderate disease in left renal artery 60% to 70% stenosis, history of hypertension, hyperlipidemia, suggest MRA. The patient refused MRA. RECOMMENDATIONS: Aggressive medical treatment. We will follow with you. Starting ____ low-dose beta maikel, medical treatment from Cardiology point of view. CVS status is stable, blood pressure is well controlled now 127/58, whereas admitting blood pressure was 230/100, now is fairly stable, possible discharge home today. Thank you, Dr. Darryn Cedeno for providing us the opportunity in taking care of Carmina Palacios. Ata Singh MD
--- NOTE | 2018-02-08 19:43 | DS ---
ADMITTING DIAGNOSIS: Hypertensive urgency. DISCHARGE DIAGNOSIS: Hypertensive urgency, resolved. SECONDARY DIAGNOSES: CKD Stage III, CAD s/p PCI with stent placement, COPD, PVD, anxiety disorder, sciatica, multiple myeloma (in remission) and anemia of chronic disease. CONSULTATIONS: Dr. Singh (Cardiology) and Dr. Banks (Nephrology). IMAGING STUDIES: 1. Chest x-ray demonstrated no acute pathology. 2. Renal artery ultrasound with Doppler demonstrated no significant stenosis and normal and symmetric sized kidneys with no masses, calcifications, or hydronephrosis. PROCEDURES: None. HISTORY OF PRESENT ILLNESS: The patient is a 62 year old woman with a past medical history of hypertension, CAD s/p PCI with stent placement, PVD, COPD and multiple myeloma who presented to [facility], [place] after a near syncopal event and for evaluation of posterior headaches. The patient reports being in her usual state of health until the day of presentation to the ED when she was noted to develop posterior headaches and lightheadedness while showering. She went to lie down in bed and await resolution of her symptoms. After several minutes she attempted to check her blood pressure on her machine at home but was unable to get a reading and thus presented to the ED for further evaluation. Upon arrival to the ED she was found to be markedly hypertensive with a blood pressure of 232/74. She received Labetalol 20 mg IV push and Metoprolol 10 mg IV push with no improvement in her hemodynamics. She was subsequently started on a Nicardipine drip and transferred to the telemetry [facility] for continued management of hypertensive urgency. HOSPITAL COURSE: Upon admission to the remote telemetry [facility] she was evaluated by Dr. Singh of Cardiology and Dr. Banks of Nephrology. She was started on a Tridil drip as well as multiple oral antihypertensives including Norvasc 10 mg p.o. daily, Labetalol 200 mg p.o. b.i.d. and Hydralazine 50 mg p.o. b.i.d. Over the following 36 hours, she demonstrated gradual improvement in her hemodynamics to a satisfactory blood pressure range. She was successfully weaned off her Tridil drip and was taken for a renal artery ultrasound to rule out renal artery stenosis, which was unremarkable. Over the following 48 hours her blood pressure stabilized and she remained normotensive on oral antihypertensives. She also underwent workup for her underlying kidney disease with the results consistent with hypertensive nephrosclerosis. An anemia workup was also performed and was consistent with anemia of chronic disease in the setting of CKD and multiple myeloma. She received 1 dose of Aranesp and 1 dose of Venofer during her hospital stay. By hospital day #5 she remained afebrile and hemodynamically stable and was cleared for discharge to home. CONDITION: Good, improved. DISPOSITION: Home. DISCHARGE MEDICATIONS: Hydralazine 50 mg p.o. b.i.d., Labetalol 200 mg p.o. b.i.d., Norvasc 10 mg p.o. daily, Nexium 40 mg p.o. daily, Xanax 1 mg p.o. t.i.d. p.r.n., Aspirin 81 mg p.o. daily and Tramadol 50 mg p.o. q. 8 hours p.r.n. pain. DISCHARGE INSTRUCTIONS: The patient was advised that if she has any recurrence of her symptoms to present to her PMD or to the nearest ED immediately. FOLLOWUP: The patient is to follow up with her PMD within 1 week of discharge. The patient is to follow up with Dr. Singh as scheduled. Arrangements will be made for followup with Dr. Banks of Nephrology. Darryn Cedeno MD MTDD
== END 2018-02-08 09:38 | disposition home or self-care (01) | DRG 683 ==
LOC: ED 11:51 → ERH 14:22 → 3RSO 22:53
PROVIDERS: ADMIT Student in an Organized Health Care Education/Training Program; ATTEND Student in an Organized Health Care Education/Training Program
DX: I12.9 Hypertensive chronic kidney disease with stage 1 through stage 4 chronic kidney disease, or unspecified chronic kidney disease (principal); I16.1 Hypertensive emergency; N17.9 Acute kidney failure, unspecified; I65.29 Occlusion and stenosis of unspecified carotid artery; I70.1 Atherosclerosis of renal artery; N18.3 Chronic kidney disease, stage 3 (moderate); C90.01 Multiple myeloma in remission; D63.1 Anemia in chronic kidney disease; E78.5 Hyperlipidemia, unspecified; E87.6 Hypokalemia; F17.210 Nicotine dependence, cigarettes, uncomplicated; F41.9 Anxiety disorder, unspecified; G89.29 Other chronic pain; I25.10 Atherosclerotic heart disease of native coronary artery without angina pectoris; I73.9 Peripheral vascular disease, unspecified; J44.9 Chronic obstructive pulmonary disease, unspecified; M54.40 Lumbago with sciatica, unspecified side; Z79.82 Long term (current) use of aspirin; Z79.899 Other long term (current) drug therapy; Z88.0 Allergy status to penicillin; Z95.5 Presence of coronary angioplasty implant and graft